=== PATIENT | female | born 1960 | race Caucasian/White ===

== ENCOUNTER 2018-02-03 11:12 | Emergency (ER) | payer SELFPAY ==
[2018-02-03] MEDS ORDERED: ACETAMINOPHEN 325 MG TABLET (FP) PO ONE (11:23)
[2018-02-03] MEDS ORDERED: FAMOTIDINE 20 MG/50 ML IVPB 20 MG/50 ML MG IVPB ONE ×2 (11:23→11:40)
[2018-02-03] MEDS ORDERED: MAG HYDROX/AL HYDROX/SIMETH -MYLANTA- ORAL SUSPENSION PO ONE (11:23)
[2018-02-03] MEDS ORDERED: SODIUM CHLORIDE 1,000 ML IV STA (11:23)
[2018-02-03] MEDS ORDERED: ONDANSETRON 4 MG/2 ML VIAL IVPB ONE (11:23)
[2018-02-03 11:24] VITALS: BMI 29.0
--- NOTE | 2018-02-03 11:35 | PDOC ---
History of Present Illness - General Chief Complaint: Pain Stated Complaint: NAUSEA,VOMITING ABDOMINAL PAIN Time Seen by Provider: 02/03/18 11:13 History Source: Patient Exam Limitations: No Limitations - History of Present Illness Initial Comments: 02/03/18 11:24 57 year old female with no past medical history (visiting from [facility]) p/w lower abdominal pain, fever, diarrhea and vomiting. Pt reports that she has had intermittent abdominal pain x several months that would resolve on its own. Never saw a physician about it. Never had a colonoscopy or endoscopy. Now here in [place] visiting for 6 months and staying with her cousin. In the last week, started to note worsening abdominal pain, worse on R side. Also with flank pain, but no dysuria or hematuria. Unsure if food worsens symptoms. Does have a history of cholecystectomy. Reports numerous loose stooling. Last night, noted a fever of 102 degrees. Past History - Past Medical History Allergies/Adverse Reactions: Allergies Allergy/AdvReac Type Severity Reaction Status Date / Time No Known Allergies Allergy Unverified 02/03/18 11:14 Home Medications: Ambulatory Orders Ciprofloxacin [Cipro -] 500 mg PO Q12H #20 tablet 02/03/18 Naproxen 500 mg PO BID PRN #20 tablet 02/03/18 metroNIDAZOLE [Flagyl -] 500 mg PO TID #30 tablet 02/03/18 Review of Systems - Review of Systems Able to Perform ROS?: Yes Comments:: 02/03/18 11:40 GENERAL/CONSTITUTIONAL: [No chills. No weakness. No weight change.] + fever HEAD, EYES, EARS, NOSE AND THROAT: [No change in vision. No ear pain or discharge. No sore throat.] CARDIOVASCULAR: [No chest pain or shortness of breath.] RESPIRATORY: [No cough, wheezing, or hemoptysis.] GASTROINTESTINAL: [+ nausea, vomiting, diarrhea. No constipation. No rectal bleeding.] + abdominal pain GENITOURINARY: [No dysuria, frequency, or change in urination.] MUSCULOSKELETAL: [No joint or muscle swelling or pain. No neck or back pain.] SKIN AND BREASTS: [No rash or easy bruising.] NEUROLOGIC: [No headache, vertigo, loss of consciousness, or loss of sensation.] PSYCHIATRIC: [No depression or anxiety.] ENDOCRINE: [No increased thirst. No abnormal weight change.] HEMATOLOGIC/LYMPHATIC: [No anemia, easy bleeding, or history of blood clots.] ALLERGIC/IMMUNOLOGIC: [No hives or skin allergy. No latex allergy.] *Physical Exam - Physical Exam Comments: 02/03/18 11:40 GENERAL: Awake, alert, and fully oriented, in no acute distress HEAD: No signs of trauma EYES: EOMI, sclera anicteric, conjunctiva clear ENT: Auricles normal inspection, hearing grossly normal, nares patent NECK: Normal ROM, supple, LUNGS: Breath sounds equal, clear to auscultation bilaterally. No wheezes, and no crackles HEART: Regular rate and rhythm, normal S1 and S2, no murmurs, rubs or gallops ABDOMEN: Soft, nontender, No guarding, no rebound. No masses EXTREMITIES: Normal range of motion, no edema. No clubbing or cyanosis. No cords, erythema, or tenderness NEUROLOGICAL: Cranial nerves II through XII grossly intact. Normal speech SKIN: Warm, Dry, normal turgor, no rashes or lesions noted. ED Treatment Course - LABORATORY CBC & Chemistry Diagram: 02/03/18 11:30 02/03/18 11:30 - RADIOLOGY Radiology Studies Ordered: Category Date Time Status ABDOMEN & PELVIS CT WITH CONTR [CT] Stat CT Scan 02/03/18 11:23 Ordered Medical Decision Making - Medical Decision Making 02/03/18 11:41 Vital Signs Temp Pulse Resp BP Pulse Ox 98.3 F 97 H 16 137/92 98 02/03/18 11:13 02/03/18 11:13 02/03/18 11:13 02/03/18 11:13 02/03/18 11:13 Patient with abdominal pain for several months now worsened today. Patient denies any family history of irritable bowel disease or irritable bowel syndrome. Given the right-sided abdominal pain, we'll need to investigate for colitis versus diverticulitis versus appendicitis versus renal pathology including pyelonephritis or cystitis. We'll obtain labs, urinalysis and a CAT scan of the pelvis and reassess. 02/03/18 13:44 CBC, BMP 02/03/18 11:30 02/03/18 11:30 CMP Sodium 137 mmol/L (136-145) 02/03/18 11:30 Potassium 3.8 mmol/L (3.5-5.1) 02/03/18 11:30 Chloride 103 mmol/L (98-107) 02/03/18 11:30 Carbon Dioxide 26 mmol/L (22-28) 02/03/18 11:30 Anion Gap 8 MMOL/L (8-16) 02/03/18 11:30 BUN 15 mg/dl (7-18) 02/03/18 11:30 Creatinine 0.8 mg/dl (0.6-1.3) 02/03/18 11:30 Creat Clearance w eGFR > 60 (>60) 02/03/18 11:30 Random Glucose 120 mg/dl (74-106) H 02/03/18 11:30 Calcium 8.3 mg/dl (8.4-10.2) L 02/03/18 11:30 Total Bilirubin 0.9 mg/dl (0.2-1.0) 02/03/18 11:30 AST 23 U/L (10-42) 02/03/18 11:30 ALT 42 U/L (10-40) H 02/03/18 11:30 Alkaline Phosphatase 77 U/L (32-92) 02/03/18 11:30 Total Protein 7.4 g/dl (6.4-8.3) 02/03/18 11:30 Albumin 4.0 g/dl (3.5-5.0) 02/03/18 11:30 Urine Test Results Urine Color Nikki 02/03/18 11:25 Urine Appearance Clear 02/03/18 11:25 Urine pH 6.0 (4.5-8) 02/03/18 11:25 Ur Specific [place] >= 1.030 (1.010-1.035) 02/03/18 11:25 Urine Protein 1+ (NEGATIVE) H 02/03/18 11:25 Urine Glucose (UA) Negative (NEGATIVE) 02/03/18 11:25 Urine Ketones Trace (NEGATIVE) 02/03/18 11:25 Urine Blood Trace-intact (NEGATIVE) H 02/03/18 11:25 Urine Nitrite Negative (NEGATIVE) 02/03/18 11:25 Urine Bilirubin Negative (NEGATIVE) 02/03/18 11:25 Ur Leukocyte Esterase Negative (NEGATIVE) 02/03/18 11:25 Urine RBC 0-2 /hpf (0-3) 02/03/18 11:25 Ur Epithelial Cells Few /HPF 02/03/18 11:25 Urine Mucus 2+ 02/03/18 11:25 CT scan shows noncomplicated acute diverticulitis. Will give ciprofloxacin and flagyl x 10 days. Given that patient is staying for a few more months, will have patient follow up with IM clinic at [facility] and GI for colonoscopy. I discussed the physical exam findings, ancillary test results and final diagnoses with the patient. I answered all of the patient's questions. The patient was satisfied with the care received and felt comfortable with the discharge plan and treatment plan. The patient will call their primary care physician within 24 hours to arrange follow-up and will return to the Emergency Department with any new, persistant or worsening symptoms. *DC/Admit/Observation/Transfer Diagnosis at time of Disposition: Diverticulitis - Discharge Dispostion Disposition: HOME Condition at time of disposition: Stable Decision to Admit order: No - Prescriptions Prescriptions: Ciprofloxacin [Cipro -] 500 mg PO Q12H #20 tablet metroNIDAZOLE [Flagyl -] 500 mg PO TID #30 tablet Naproxen 500 mg PO BID PRN #20 tablet PRN Reason: Pain/Fever - Referrals Referrals: Michael Kidd MD [Staff Physician] - Wyatt Bolanos MD [Staff Physician] - - Patient Instructions Printed Discharge Instructions: DI for Diverticulitis Additional Instructions: Please take the antibiotics for the next 10 days. You may take naproxen every 12 hours as needed for fever/pain. Drink plenty of fluids and rest. It may take several days before your symptoms improve. Call to schedule an appointment for follow up. - Post Discharge Activity
[2018-02-03] MEDS ORDERED: ACETAMINOPHEN 325 MG TABLET (FP) ONE (11:40)
[2018-02-03] MEDS ORDERED: ONDANSETRON 4 MG/2 ML VIAL ONE (11:41)
[2018-02-03] MEDS ORDERED: MAG HYDROX/AL HYDROX/SIMETH 30 ML UNIT-DOSE CUP ONE (11:41)
[2018-02-03 11:47] LABS: URINE APPEARANCE Clear; URINE BILIRUBIN Negative (NEGATIVE); URINE COLOR Amber; URINE GLUCOSE (UA) Negative (NEGATIVE); URINE KETONE Trace (NEGATIVE); URINE LEUK ESTERASE Negative (NEGATIVE); URINE NITRITE Negative (NEGATIVE); URINE PROTEIN 1+ (NEGATIVE)
[2018-02-03 11:53] LABS: BASO % 0.4 % (0-2.0); EOS % 0.8 % (0-4.5); HEMATOCRIT 40.5 % (32.4-45.2); HEMOGLOBIN 13.6 GM/dl (10.7-15.3); MCH 29.6 pg (25.7-33.7); MCHC 33.5 g/dl (32.0-36.0); MEAN CELL VOLUME 88.2 fl (80-96); MEAN PLT VOLUME 7.7 fl (7.5-11.1); MONO % 7.1 % (3.8-10.2); NEUT % 65.7 % (42.8-82.8); PLATELET COUNT 232 K/MM3 (134-434); RBC 4.59 M/mm3 (3.60-5.2); RDW 12.1 % (11.6-15.6); WHITE BLOOD COUNT 9.6 K/mm3 (4.0-10.8)
[2018-02-03 12:00] LABS: ALK PHOS 77 U/L (32-92); ANION GAP 8 MMOL/L (8-16); BILIRUBIN,TOTAL 0.9 mg/dl (0.2-1.0); BLOOD UREA NITROGEN 15 mg/dl (7-18); CALCIUM 8.3 mg/dl (8.4-10.2); CHLORIDE 103 mmol/L (98-107); CO2 26 mmol/L (22-28); CREATININE 0.8 mg/dl (0.6-1.3); GLUCOSE,RANDOM 120 mg/dl (74-106); POTASSIUM 3.8 mmol/L (3.5-5.1); SGOT/AST 23 U/L (10-42); SGPT/ALT 42 U/L (10-40); SODIUM 137 mmol/L (136-145); TOT PROT 7.4 g/dl (6.4-8.3)
[2018-02-03 12:18] LABS: EPI CELLS FEW /HPF; URINE MUCUS 2+; URINE RBC 0-2 /hpf (0-3)
[2018-02-03 13:43] VITALS: BP 124/88; PULSE 88; TEMP 98.1
[2018-02-03] MEDS ORDERED: metroNIDAZOLE 250 MG TABLET PO ONE (13:43)
[2018-02-03] MEDS ORDERED: CIPROFLOXACIN 500 MG TABLET (RESTRICTED TO ID) PO ONE (13:43)
[2018-02-03] MEDS ORDERED: metroNIDAZOLE 250 MG TABLET ONE (13:48)
[2018-02-03] MEDS ORDERED: CIPROFLOXACIN 250 MG TABLET (RESTRICTED TO ID) PO ONE (13:48)
[2018-02-03 14:27] LABS: LIPASE 88 U/L (73-393)
== END 2018-02-03 13:59 | disposition home or self-care (01) ==
LOC: FER 11:12
PROC: 3E033GC Introduction of Other Therapeutic Substance into Peripheral Vein, Percutaneous Approach (ICD-10-PCS; principal; 2018-02-03)
DX: K57.92 Diverticulitis of intestine, part unspecified, without perforation or abscess without bleeding (principal)
CPT/HCPCS: 36415; 74177-TC; 80053; 81003; 81015; 83690; 85025; 87086; 99283-25; J7030

== ENCOUNTER 2018-02-04 12:17 | Emergency (ER) | payer SELFPAY ==
--- NOTE | 2018-02-04 12:34 | PDOC ---
History of Present Illness - General Chief Complaint: Allergic Reaction Stated Complaint: ALLERGIC REACTION POSSIBLY TO ANTIBIOTIC Time Seen by Provider: 02/04/18 12:21 - History of Present Illness Initial Comments: 02/04/18 12:38 57yo female with no pmhx presents to the ED c/o facial swelling, itching, chest itching. Pt was diagnosed yesterday with diverticulitis. Pt was started on cipro , flagyl, and naprosyn. States her face started to swell and itch last night. States she did not take the oral abx last night because she received the IV dose. Pt did take naprosyn last night, but her face was already itching when she took the naprosyn. Pt states she took oral benadryl this AM without relief. Pt c/o LLQ pain, no diarrhea today. Pt denies fevers today. Pt had a fever of 102 yesterday prior to her ED visit. Pt denies cp/sob. No difficulty speaking or breathing. No lip or tongue swelling. No wheezing. No stridor. denies hives to arms or legs. Pt with hives to face, upper chest, neck. PMhx: diveriticulitis PShx: denies Allergies: NKDA - concern for cipro vs flagyl allergy meds: cipro, flagyl, naprosyn Past History - Past Medical History Allergies/Adverse Reactions: Allergies Allergy/AdvReac Type Severity Reaction Status Date / Time ciprofloxacin [From Cipro] Allergy Intermediate Rash Verified 02/04/18 13:31 metronidazole [From Flagyl] Allergy Intermediate Itching Verified 02/04/18 13:32 Home Medications: Ambulatory Orders Ciprofloxacin [Cipro -] 500 mg PO Q12H #20 tablet 02/03/18 Naproxen 500 mg PO BID PRN #20 tablet 02/03/18 metroNIDAZOLE [Flagyl -] 500 mg PO TID #30 tablet 02/03/18 Epinephrine [Epipen] 0.3 mg IJ ONCE PRN #1 auto.injct 02/04/18 Famotidine [Pepcid -] 20 mg PO DAILY #7 tablet 02/04/18 predniSONE [Deltasone -] 40 mg PO DAILY #8 tablet 02/04/18 COPD: No - Surgical History Cholecystectomy: Yes - Suicide/Smoking/Psychosocial Hx Smoking History: Never smoked Hx Alcohol Use: No Drug/Substance Use Hx: No Review of Systems - Review of Systems Able to Perform ROS?: Yes Is the patient limited [place] proficient: No Constitutional: No: Chills, Fever HEENTM: No: Ear Pain, Nose Pain, Throat Pain Respiratory: No: Cough, Shortness of Breath, SOB with Exertion, SOB at Rest, Wheezing Cardiac (ROS): No: Chest Pain, Lightheadedness, Palpitations ABD/GI: Yes: Abdominal cramping. No: Diarrhea, Nausea, Vomiting : No: Burning, Dysuria Musculoskeletal: No: Back Pain Integumentary: Yes: Pruritus, Rash, Other (urticaria). No: Bruising, Dryness, Erythema Neurological: No: Headache, Numbness All Other Systems: Reviewed and Negative *Physical Exam - Vital Signs 02/04/18 12:43 Selected Entries 02/04/18 12:18 Temperature 98.3 F Pulse Rate 85 Respiratory 16 Rate Blood Pressure 126/87 Blood Pressure 100 Mean O2 Sat by Pulse 98 Oximetry (%) Weight 76.204 kg - Physical Exam General Appearance: Yes: Nourished, Appropriately Dressed. No: Apparent Distress HEENT: positive: EOMI, LENY, Normal Voice, Pharynx Normal, Other (no posterior pharynx swelling, uvula midline, no lip or tongue swelling). negative: Pharyngeal Erythema, Tonsillar Exudate, Tonsillar Erythema, Rhinorrhea Neck: positive: Trachea midline, Supple. negative: Stridor Respiratory/Chest: positive: Lungs Clear, Normal Breath Sounds. negative: Respiratory Distress, Wheezing Cardiovascular: positive: Regular Rhythm, Regular Rate, S1, S2. negative: Edema Gastrointestinal/Abdominal: positive: Tender (LLQ ttp), Soft, Tenderness (LLQ ttp, no rebound or guarding). negative: Guarding, Rebound Musculoskeletal: positive: Normal Inspection. negative: CVA Tenderness Extremity: positive: Normal Capillary Refill, Normal Inspection. negative: Swelling, Calf Tenderness Integumentary: positive: Erythema, Hives (to face, upper chest, neck) Neurologic: positive: vice president biostatistics II-XII NML intact, Fully Oriented, Alert, Motor Strength 5/5 ED Treatment Course - LABORATORY CBC & Chemistry Diagram: 02/04/18 12:55 02/04/18 13:17 Medical Decision Making - Medical Decision Making 02/04/18 12:45 a/p: 57yo female with dx of diveriticulitis yesterday with allergy today -concern for allergy to cipro vs flagyl -will repeat labs, still with LLQ pain -will need iv abx for diverticulitis -will need allergy treatment -will monitor and reassess -most likely will need admission for iv abx for diverticulitis 02/04/18 13:41 pt feeling better rash resolving, urticaria resolving no longer itchy discussed that the patient has diverticulitis and that she needs antibiotics, however unclear which antibiotic she had an allergic reaction to. discussed that she should stay for iv abx discussed that her diverticulitis is still present and will need treatment discussed that she should stay for iv abx discussed she can no longer take cipro and flagyl pt states she will change her ticket back to [place] and return this week and be treated for her diverticulitis states she understands she is signing out AMA pt states she wants to sign out AMA and wants to follow up at home with her doctor. answered all questions and discussed risks/benefits of staying vs signing out AMA 02/04/18 13:44 Note: The patient insists on leaving the emergency dept and is signing out against medical advice. The patient understands the risks and complications that may result from the refusal of medical care and admission which includes and permanent disability. The patient has the mental capacity of understanding the risks of refusing care and is capable of making an informed decision. The patient was instructed to return to the emergency department should she change her mind regarding medical care or should her condition worsen. The patient signed the Against Medical Advice form. *DC/Admit/Observation/Transfer Diagnosis at time of Disposition: Diverticulitis, Allergic reaction - Discharge Dispostion Disposition: AGAINST MEDICAL ADVICE Condition at time of disposition: Stable Decision to Admit order: No - Prescriptions Prescriptions: Epinephrine [Epipen] 0.3 mg IJ ONCE PRN #1 auto.injct PRN Reason: For Itching Famotidine [Pepcid -] 20 mg PO DAILY #7 tablet predniSONE [Deltasone -] 40 mg PO DAILY #8 tablet - Referrals - Patient Instructions Printed Discharge Instructions: DI for Diverticulitis, DI for Adverse Drug Reaction -- Allergic Additional Instructions: Please take all medications as prescribed. Please follow up [facility] with your PMD for further eval of your diverticulitis. Please do not take the cipro or flagyl. Please take all the allergy meds as prescribed. Please return to the ED [facility] if you develop new or worsening symptoms. - Post Discharge Activity
[2018-02-04] MEDS ORDERED: SODIUM CHLORIDE 0.9% 1000 ML INFUS.BAG IV ONE (12:35)
[2018-02-04] MEDS ORDERED: FAMOTIDINE 20 MG/50 ML IVPB 20 MG/50 ML MG IVPB ONE ×2 (12:35→12:48)
[2018-02-04] MEDS ORDERED: methylPREDNISolone NA SUCC 125 MG/2 ML VIAL IVPB ONE (12:35)
[2018-02-04 12:38] VITALS: BP 126/87; PULSE 85; TEMP 98.3; BMI 27.1
[2018-02-04] MEDS ORDERED: methylPREDNISolone NA SUCC 125 MG/2 ML VIAL ONE (12:48)
[2018-02-04 13:10] LABS: BASO % 0.4 % (0-2.0); EOS % 2.3 % (0-4.5); HEMATOCRIT 41.5 % (32.4-45.2); HEMOGLOBIN 14.1 GM/dl (10.7-15.3); LYMPH % 22.2 % (8-40); MCHC 33.9 g/dl (32.0-36.0); MEAN CELL VOLUME 88.6 fl (80-96); MONO % 2.9 % (3.8-10.2); NEUT % 72.2 % (42.8-82.8); PLATELET COUNT 235 K/MM3 (134-434); RBC 4.69 M/mm3 (3.60-5.2); RDW 12.1 % (11.6-15.6); WHITE BLOOD COUNT 7.5 K/mm3 (4.0-10.8)
[2018-02-04 13:40] LABS: ALBUMIN 3.7 g/dl (3.5-5.0); ALK PHOS 65 U/L (32-92); ANION GAP 7 MMOL/L (8-16); BILIRUBIN,TOTAL 0.9 mg/dl (0.2-1.0); BLOOD UREA NITROGEN 14 mg/dl (7-18); CALCIUM 8.4 mg/dl (8.4-10.2); CHLORIDE 106 mmol/L (98-107); CO2 28 mmol/L (22-28); CREATININE 0.8 mg/dl (0.6-1.3); GLUCOSE,RANDOM 91 mg/dl (74-106); POTASSIUM 3.9 mmol/L (3.5-5.1); SGOT/AST 19 U/L (10-42); SGPT/ALT 35 U/L (10-40); SODIUM 141 mmol/L (136-145); TOT PROT 6.6 g/dl (6.4-8.3)
== END 2018-02-04 14:25 | disposition left against medical advice (07) ==
LOC: FER 12:17
PROC: 3E0337Z Introduction of Electrolytic and Water Balance Substance into Peripheral Vein, Percutaneous Approach (ICD-10-PCS; principal; 2018-02-04)
PROC: 3E033GC Introduction of Other Therapeutic Substance into Peripheral Vein, Percutaneous Approach (ICD-10-PCS; 2018-02-04)
DX: K57.92 Diverticulitis of intestine, part unspecified, without perforation or abscess without bleeding (principal); T78.40XA Allergy, unspecified, initial encounter
CPT/HCPCS: 36415; 80053; 85025; 99282-25; J7030